=== PATIENT | male | born 1965 | race Caucasian/White ===

== ENCOUNTER 2018-10-08 10:21 | Emergency (ER) | payer MEDICAID, SELFPAY ==
[~2018-10-08] VITALS: Ht 193 cm; Wt 109.0 kg
[2018-10-08 10:31] VITALS: BP 153/99
[2018-10-08] MEDS ORDERED: KETOROLAC 30 MG/1 ML ONE (11:09)
[2018-10-08] MEDS ORDERED: KETOROLAC 30 MG/1 ML IM ONE (11:30)
== END 2018-10-08 11:45 | disposition home or self-care (01) ==
LOC: ED 11:30
DX: S80.01XA Contusion of right knee, initial encounter (principal); F17.200 Nicotine dependence, unspecified, uncomplicated; X50.1XXA Overexertion from prolonged static or awkward postures, initial encounter; Y93.89 Activity, other specified; Y92.69 Other specified industrial and construction area as the place of occurrence of the external cause; Y99.8 Other external cause status
CPT/HCPCS: 29505; 73564; 96372; 99283; J1885

== ENCOUNTER 2018-11-14 08:53 | Emergency (ER) | payer MEDICAID ==
[~2018-11-14] VITALS: Ht 193 cm; Wt 106.0 kg
[2018-11-14] MEDS ORDERED: ALBU0.63 NEB (09:38)
--- NOTE | 2018-11-14 09:46 | NUR ---
Patient/Caregiver given discharge instructions and they have confirmed that they understand the instructions. Patient ambulatory with steady gait.
[2018-11-14 09:47] VITALS: BP 120/85
== END 2018-11-14 09:56 | disposition home or self-care (01) ==
LOC: ED 09:47
DX: J44.1 Chronic obstructive pulmonary disease with (acute) exacerbation (principal); F17.200 Nicotine dependence, unspecified, uncomplicated
CPT/HCPCS: 71046; 93005; 99283

== ENCOUNTER 2019-02-07 03:40 | Emergency (ER) | payer MEDICAID ==
[~2019-02-07] VITALS: Ht 193 cm; Wt 107.5 kg
[2019-02-07 06:29] VITALS: BP 117/77
== END 2019-02-07 06:34 | disposition home or self-care (01) ==
LOC: ED 06:21
DX: K57.32 Diverticulitis of large intestine without perforation or abscess without bleeding (principal); J44.9 Chronic obstructive pulmonary disease, unspecified; R06.02 Shortness of breath
CPT/HCPCS: 36415; 74177; 80053; 81001; 83690; 84484; 85025; 93005; 96374; 99284; J2405; Q9967

== ENCOUNTER 2020-09-19 11:30 | Emergency (ER) | payer MEDICAID ==
[~2020-09-19] VITALS: Ht 193 cm; Wt 122.4 kg
[~2020-09-19 11:30] MED LIST: ALBU0.63 NEB; IBUP-1223 PO
--- NOTE | 2020-09-19 11:48 | NUR ---
PT C/O BLISS SINCE THIS AM, TOOK TYLENOL WITH SLIGHT RELIEF, ALSO HAD LOOSE BM SINCE LAST NIGHT. BLISS 6/10 ON PAIN SCALE.
[2020-09-19] MEDS ORDERED: ONDANSETRON 2MG/ML, 2ML ONE (12:19)
[2020-09-19 12:29] LABS: BASOPHILS % (AUTO) 1 % (0-1); EOSINOPHILS % (AUTO) 5 % (1-7); LYMPHOCYTES % (AUTO) 38 % (22-44); MEAN CORPUSCULAR HEMOGLOBIN 31.8 pg (27.5-34.5); MEAN CORPUSCULAR HGB CONC 35.1 g/dL (33.2-36.2); MONOCYTES % (AUTO) 6 % (2-9); NEUTROPHILS % (AUTO) 50 % (42-75); PLATELET COUNT 239 x10^3/uL (130-400); RED BLOOD COUNT 5.51 x10^6/uL (4.38-5.82); RED CELL DISTRIBUTION WIDTH 13.6 % (9.4-14.8)
[2020-09-19] MEDS ORDERED: SODIUM CHLORIDE 0.9% 1,000ML IVBOLUS ONE (12:30)
[2020-09-19] MEDS ORDERED: SODIUM CHLORIDE 0.9% 1,000 ML IV ONE (12:30)
[2020-09-19] MEDS ORDERED: ONDANSETRON 2MG/ML, 2ML IVPush ONE (12:30)
[2020-09-19] MEDS ORDERED: MORPHINE SULFATE 4 MG/ML, 1ML IVPush PRN (12:30)
[2020-09-19] MEDS ORDERED: SODIUM CHLORIDE FLUSH 10ML SYR IVF ONE (12:30)
[2020-09-19 12:31] LABS: MD NO
[2020-09-19 12:40] LABS: ALANINE AMINOTRANSFERASE 47 U/L (12-78); ALBUMIN 3.9 g/dL (3.4-5.0); ANION GAP 6 mmol/L (5-15); CALCIUM 8.9 mg/dL (8.5-10.1); CHLORIDE 109 mmol/L (98-107)
[2020-09-19 12:42] LABS: ALKALINE PHOSPHATASE 87 U/L (45-117); BILIRUBIN,TOTAL 0.4 mg/dL (0.2-1.0); CREATININE 0.97 mg/dL (0.7-1.3); TOTAL PROTEIN 7.1 g/dL (6.4-8.2)
--- NOTE | 2020-09-19 12:58 | NUR ---
UNABLE TO LEAVE URINE SAMPLE AT THIS TIME.
[2020-09-19 13:27] LABS: MICROSCOPIC NOT IND
--- NOTE | 2020-09-19 14:28 | NUR ---
ASSUMED CARE OF PT FROM SHU OCASIO. PT RESTING IN [facility], MONITORING IN PLACE, CESAR AT THIS TIME, SUZI.
[2020-09-19 15:00] VITALS: BP 118/87
== END 2020-09-19 15:20 | disposition home or self-care (01) ==
LOC: ED 13:07
DX: G44.209 Tension-type headache, unspecified, not intractable (principal); R19.7 Diarrhea, unspecified; R11.0 Nausea; J44.9 Chronic obstructive pulmonary disease, unspecified
CPT/HCPCS: 36415; 80053; 81003; 83690; 85025; 96361; 96374; 99283; J2405; J7030

== ENCOUNTER 2020-11-29 16:14 | Emergency (ER) | payer MEDICAID ==
[~2020-11-29] VITALS: Ht 193 cm; Wt 120.0 kg
--- NOTE | 2020-11-29 16:55 | NUR ---
SPANISH SPEAKING NANNY: PT WALKED BACK FROM LOBBY TO ROOM AT THIS TIME. STEADY UPON AMBULATION. NO ACUTE DISTRESS NOTED.
--- NOTE | 2020-11-29 17:09 | NUR ---
PT AMBULATED TO ROOM FROM LOBBY. PT CO ABDOMINAL PAIN THAT START LAST NIGHT AND HAS GOTTEN WORSE TODAY. PT STATED THAT PAIN STARTED EPIGASTRIC PAIN THEN WENT INTO RUQ AND RLQ AND INTO RIGHT FLANK AND GROIN. ABDOMEN TENDER TO PALPATION IN RLQ. PT DENIES ANY N/V/D, FEVER OR PAINFUL URINATION OR BLOOD IN URINE.
[2020-11-29] MEDS ORDERED: SODIUM CHLORIDE FLUSH 10ML SYR IVF ONE (17:30)
[2020-11-29 17:43] LABS: BASOPHILS % (AUTO) 1 % (0-1); EOSINOPHILS % (AUTO) 3 % (1-7); LYMPHOCYTES % (AUTO) 30 % (22-44); MEAN CORPUSCULAR HEMOGLOBIN 31.4 pg (27.5-34.5); MEAN CORPUSCULAR HGB CONC 34.5 g/dL (33.2-36.2); MEAN PLATELET VOLUME 8.1 fL (7.4-10.4); MONOCYTES % (AUTO) 8 % (2-9); NEUTROPHILS % (AUTO) 59 % (42-75); PLATELET COUNT 259 x10^3/uL (130-400); RED BLOOD COUNT 5.47 x10^6/uL (4.38-5.82); RED CELL DISTRIBUTION WIDTH 13.7 % (9.4-14.8)
[2020-11-29 17:44] LABS: MD NO
[2020-11-29 17:50] LABS: ALANINE AMINOTRANSFERASE 44 U/L (12-78); ALBUMIN 4.1 g/dL (3.4-5.0); CHLORIDE 107 mmol/L (98-107); CREATININE 0.98 mg/dL (0.7-1.3)
[2020-11-29 17:51] LABS: MICROSCOPIC NOT IND
[2020-11-29 17:52] LABS: ALKALINE PHOSPHATASE 88 U/L (45-117); BILIRUBIN,TOTAL 0.4 mg/dL (0.2-1.0); TOTAL PROTEIN 7.5 g/dL (6.4-8.2)
[2020-11-29 18:08] LABS: ANION GAP 7 mmol/L (5-15)
--- NOTE | 2020-11-29 18:15 | NUR ---
PT TO CT
[2020-11-29 18:25] VITALS: BP 152/80
[2020-11-29] MEDS ORDERED: OMNIPAQUE 350 MG/ML, 100ML BOTTLE ONE (18:46)
--- NOTE | 2020-11-29 18:53 | NUR ---
REPORT TO SHU WRIGHT
== END 2020-11-29 20:00 | disposition home or self-care (01) ==
LOC: ED 18:38
DX: R10.31 Right lower quadrant pain (principal); J44.9 Chronic obstructive pulmonary disease, unspecified
CPT/HCPCS: 36415; 74177; 80053; 81003; 83690; 85025; 99285; Q9967

== ENCOUNTER 2021-04-09 00:05 | Emergency (ER) | payer MEDICAID ==
[~2021-04-09] VITALS: Ht 193 cm; Wt 122.1 kg
[2021-04-09 00:19] VITALS: BP 118/82
--- NOTE | 2021-04-09 00:28 | NUR ---
COVID SWAB COMPLETED AND WALKED TO LAB
[2021-04-09 00:53] LABS: BASOPHILS % (AUTO) 1 % (0-1); EOSINOPHILS % (AUTO) 2 % (1-7); LYMPHOCYTES % (AUTO) 39 % (22-44); MEAN CORPUSCULAR HEMOGLOBIN 31.6 pg (27.5-34.5); MEAN CORPUSCULAR HGB CONC 34.9 g/dL (33.2-36.2); MONOCYTES % (AUTO) 19 % (2-9); NEUTROPHILS % (AUTO) 40 % (42-75); PLATELET COUNT 200 x10^3/uL (130-400); RED CELL DISTRIBUTION WIDTH 13.6 % (9.4-14.8)
[2021-04-09 01:00] LABS: ALBUMIN 3.5 g/dL (3.4-5.0); ANION GAP 6 mmol/L (5-15); CALCIUM 8.5 mg/dL (8.5-10.1); CHLORIDE 103 mmol/L (98-107); CREATININE 1.06 mg/dL (0.7-1.3)
== END 2021-04-09 02:30 | disposition home or self-care (01) ==
LOC: ED 02:24
DX: U07.1 COVID-19 (principal); R06.02 Shortness of breath; J06.9 Acute upper respiratory infection, unspecified; R06.00 Dyspnea, unspecified; M79.10 Myalgia, unspecified site; J44.9 Chronic obstructive pulmonary disease, unspecified; E78.5 Hyperlipidemia, unspecified; F17.200 Nicotine dependence, unspecified, uncomplicated
CPT/HCPCS: 36415; 71045; 80048; 82040; 85025; 99284; U0003; U0005